=== PATIENT | male | born 1955 | race Two or more races ===

== ENCOUNTER 2018-12-18 22:45 | Emergency (ER) | payer BC ==
[~2018-12-18] VITALS: Ht 170.2 cm; Wt 92.0 kg
[~2018-12-18 22:45] MED LIST: LOSA50TA86 PO; METF500T16 PO; NAPR-514 PO; SIMV10TA3 PO
--- NOTE | 2018-12-18 22:50 | ED.ADGEN ---
Past History Past Medical History: CVA, Diabetes, Hypertension Past Medical History Rt side weakness and sensation post CVA in August 2018, Some speech dysarthria Past Surgical History: No Surgical History Smoking: Non-smoker Alcohol Use: Occasionally Drug Use: None Adult General Chief Complaint Chief Complaint ".. I in shower.. and sit... on stool.. and go put .. on shoes.. and fall.. hurt .. here .. wrist...." HPI HPI Patient is a 63 year old male who presents with above hx and complaints right wrist injury. Patient has weakness on right side from previous stroke on August 2018. Patient has post-sequela weakness from stroke and dysarthria. Patient primarily speaks Congolese. Patient does have a history of diabetes and hypertension. Patient has been compliant with his meds. No history of loss of consciousness. Patient right-hand dominant prior the stroke. Distal neurovascular intact in right hand and equal to left hand. Does have swelling and wrist area. Does have pain when he attempts to move right wrist. No upper arm tenderness or other injury reported. [facility]. FOOSH type injury. Review of Systems Review of Systems Constitutional: Denies fever or chills [] Eyes: Denies change in visual acuity, redness, or eye pain [] HENT: Denies nasal congestion or sore throat [] Respiratory: Denies cough or shortness of breath [] Cardiovascular: No additional information not addressed in HPI [] GI: Denies abdominal pain, nausea, vomiting, bloody stools or diarrhea [] : Denies dysuria or hematuria [] Musculoskeletal: Denies back pain or joint pain []Except complaints of injury in Rt. wrist. Rt. side weakness chronic since CVA Integument: Denies rash or skin lesions [] Neurologic: Denies headache, no new focal weakness or sensory changes []Rt side weakness and dysarthria since stroke Endocrine: Denies polyuria or polydipsia [] All other systems were reviewed and found to be within normal limits, except as documented in this note. Family History Family History Hypertension and diabetes Current Medications Current Medications Current Medications Medications (Trade) Dose Ordered Sig/Marcos Start Time Stop Time Status Last Admin Dose Admin Clonidine HCl (Catapres) 0.2 mg 1X ONCE 12/18/18 23:15 12/18/18 23:16 DC 12/18/18 23:17 0.2 MG Oxycodone/ Acetaminophen (Percocet 5/325) 1 tab 1X ONCE 12/18/18 23:15 12/18/18 23:16 DC 12/18/18 23:17 1 TAB See nursing for home meds Allergies Allergies Allergies Coded Allergies Type Severity Reaction Last Updated Verified No Known Drug Allergies 09/04/13 No Physical Exam Physical Exam Constitutional: Moderate acute distress, non-toxic appearance. [] HENT: Normocephalic, atraumatic, bilateral external ears normal, oropharynx moist, no oral exudates, nose normal. [] Eyes: PERRLA, EOMI, conjunctiva normal, no discharge. [] Neck: Normal range of motion, no tenderness, supple, no stridor. [] Cardiovascular:Heart rate regular rhythm, no murmur [] Lungs & Thorax: Bilateral breath sounds equal at apex auscultation [] Abdomen: Bowel sounds normal, soft, no tenderness, no masses, no pulsatile masses. [] Skin: Warm, dry, no erythema, no rash. [] Back: No tenderness, no CVA tenderness. [] Extremities: No tenderness, no cyanosis, no clubbing, ROM intact, no edema. []Except findings in right wrist. Persistent right sided weakness since CVA Neurologic: Alert and oriented X 3, some weakness on right side and decreased sensory on right side-post CVA, no new focal deficits noted. [] Psychologic: Affect anxious, judgement normal, mood normal. [] Current Patient Data Vital Signs Vital Signs Date Time Temp Pulse Resp B/P (MAP) Pulse Ox O2 Delivery O2 Flow Rate FiO2 12/19/18 00:10 18 97 12/18/18 23:50 88 162/73 (102) Room Air 12/18/18 22:45 98.2 EKG EKG [] Radiology/Procedures Radiology/Procedures [][address] [address] IMAGING REPORT Signed PATIENT: BARBARA ZAMARRIPAACCOUNT: [id number] : 1955 LOCATION: ER AGE: 63 SEX: M EXAM STATUS: DEP ER ORD. PHYSICIAN: FRANCIA HILL MD REASON: fall in shower- PAIN AROUND ENTIRE RIGHT WRIST. PROCEDURE: WRIST 3V RIGHT Examination: 3 views of the right wrist HISTORY: History of fall COMPARISON: None available FINDINGS: The alignment of the carpal bones grossly appears unremarkable. There is no obvious acute fracture identified. Mild joint space loss identified in the carpal bones likely degenerative changes. IMPRESSION: No acute osseous findings. Electronically signed by: Jacques Ponce MD (12/18/2018 11:59 PM) [place] [id number] DICTATED AND SIGNED BY: JACQUES PONCE MD DATE: 12/18/18 1666 CC: FRANCIA HILL MD; CHRISTINA VEGA MD ~ Course & Med Decision Making Course & Med Decision Making Pertinent Labs and Imaging studies reviewed. (See chart for details) Distal neurovascular intact after patient swelling. Patient keep arm elevated. Patient use ice packs as needed. Patient take Vicoprofen one tablet up to 4 times a day for marked pain. Otherwise take Tylenol and ibuprofen. Follow-up primary care. Consider repeat x-ray in 2 weeks. Explained to family and patient that sometimes scaphoid fractures do not show initially on x-ray. Patient does have marked degenerative joint changes and wrist. Return if any concerns. Follow up primary care. [] Final Impression Final Impression 1. Fall[] 2. Right wrist injury 3. History of right-sided weakness and dysarthria-CVA 2018 Dragon Disclaimer Dragon Disclaimer This electronic medical record was generated, in whole or in part, using a voice recognition dictation system. Dragon Disclaimer This chart was dictated in whole or in part using Voice Recognition software in a busy, high-work load, and often noisy Emergency Department environment. It may contain unintended and wholly unrecognized errors or omissions. FRANCIA HILL MD Dec 18, 2018 22:50
[2018-12-18] MEDS ORDERED: cloNIDine HCL 0.1 MG TABLET PO ONE (23:15)
[2018-12-18] MEDS ORDERED: oxyCODONE/APAP 5/325 1 TAB TABLET PO ONE (23:15)
[2018-12-18 23:50] VITALS: BP 162/73
[2018-12-18] MEDS ORDERED: HYDR-1179 PO (23:50)
--- NOTE | 2018-12-19 00:02 | RAD ---
Examination: 3 views of the right wrist HISTORY: History of fall COMPARISON: None available FINDINGS: The alignment of the carpal bones grossly appears unremarkable. There is no obvious acute fracture identified. Mild joint space loss identified in the carpal bones likely degenerative changes. IMPRESSION: No acute osseous findings. Electronically signed by: Jacques Ponce MD (12/18/2018 11:59 PM) [facility]
== END 2018-12-18 23:50 | disposition home or self-care (01) ==
LOC: ER 22:45
DX: S69.91XA Unspecified injury of right wrist, hand and finger(s), initial encounter (principal); E11.9 Type 2 diabetes mellitus without complications; I10 Essential (primary) hypertension; R53.1 Weakness; Z86.73 Personal history of transient ischemic attack (TIA), and cerebral infarction without residual deficits; W18.39XA Other fall on same level, initial encounter; Y93.E1 Activity, personal bathing and showering; Y92.89 Other specified places as the place of occurrence of the external cause; Y99.8 Other external cause status
CPT/HCPCS: 29125; 73110; 99284

== ENCOUNTER 2021-03-07 07:17 | Emergency (ER) | payer BC, MEDICARE ==
[~2021-03-07] VITALS: Ht 160 cm; Wt 230.0 kg
[~2021-03-07 07:17] MED LIST changes: +HYDR-1179 PO; +SIMV10TA15 PO; -SIMV10TA3 PO
[2021-03-07 07:18] VITALS: BP 127/64
--- NOTE | 2021-03-07 07:46 | PHYS DOC ---
Past History Past Medical History: CVA, Diabetes, Hypertension Past Surgical History: No Surgical History Smoking: Non-smoker Alcohol Use: Occasionally Drug Use: None General Adult EDM: Chief Complaint: SOB, COVID+ HPI: HPI: 65-year-old male presents via EMS with shortness of breath. The patient was diagnosed Covid positive for the last 1 week. Belarusian is his second language. He states that he feels like he cannot take a deep breath and it is hard to take his prescribed inhaler. He is already been prescribed dexamethasone and breathing treatments. He has no other specific complaints at this time. Review of Systems: Review of Systems: Constitutional: Denies fever or chills Eyes: Denies change in visual acuity HENT: Denies nasal congestion or sore throat Respiratory: shortness of breath Cardiovascular: Denies chest pain or edema GI: Denies abdominal pain, nausea, vomiting, bloody stools or diarrhea : Denies dysuria Musculoskeletal: Denies back pain or joint pain Integument: Denies rash Neurologic: Denies headache, focal weakness or sensory changes Endocrine: Denies polyuria or polydipsia Lymphatic: Denies swollen glands Psychiatric: Denies depression or anxiety Allergies: Allergies: Allergies Coded Allergies Type Severity Reaction Last Updated Verified No Known Drug Allergies 09/04/13 No Physical Exam: PE: Constitutional: Well developed, well nourished, no acute distress, non-toxic appearance. [] HENT: Normocephalic, atraumatic, bilateral external ears normal, oropharynx moist, no oral exudates, nose normal. [] Eyes: PERRLA, EOMI, conjunctiva normal, no discharge. [] Neck: Normal range of motion, no tenderness, supple, no stridor. [] Cardiovascular: Heart rate regular rhythm, no murmur [] Lungs & Thorax: Bilateral breath sounds clear to auscultation [] Abdomen: Bowel sounds normal, soft, no tenderness, no masses, no pulsatile masses. [] Skin: Warm, dry, no erythema, no rash. [] Back: No tenderness, no CVA tenderness. [] Extremities: No tenderness, no cyanosis, no clubbing, ROM intact, no edema. [] Neurologic: Alert and oriented X 3, normal motor function, normal sensory function, no focal deficits noted. [] Psychologic: Affect normal, judgement normal, mood normal. [] Current Patient Data: Labs: Laboratory Tests Test 03/07/21 07:33 Glucose (Fingerstick) 180 mg/dL (70-99) H EKG: EKG: [] Radiology/Procedures: Radiology/Procedures: [] Impressions: XR CHEST 1V INDICATION: COVID, SHORT OF AIR COMPARISON STUDY: 10/31/2011. FINDINGS: Lungs: Normal lung volume. Patchy bilateral peripheral predominantly opacities. Pleura: No pleural effusion or pneumothorax. Heart and Mediastinum: The cardiomediastinal silhouette is normal. At herosclerosis of the thoracic aorta. IMPRESSION: Patchy bilateral peripheral predominantly opacities, consistent with patient's history of infection. Electronically signed by: Shana Montana MD (03/07/2021 8:19 AM) [id number] DICTATED AND SIGNED BY: SHANA MONTANA MD DATE: 03/07/21817 CC: MEAGAN RODRIGUEZ DO; CHRISTINA VEGA MD ~MTH0 0 Heart Score: C/O Chest Pain: N/A Risk Factors: Risk Factors: DM, Current or recent (<one month) smoker, HTN, HLP, family history of CAD, obesity. Risk Scores: Score 0 - 3: 2.5% MACE over next 6 weeks - Discharge Home Score 4 - 6: 20.3% MACE over next 6 weeks - Admit for Clinical Observation Score 7 - 10: 72.7% MACE over next 6 weeks - Early Invasive Strategies Course & Med Decision Making: Course & Med Decision Making Pertinent Labs and Imaging studies reviewed. (See chart for details) EKG is unremarkable. Troponin is negative. The patient's labs are unremarkable. His blood sugar is 183. He has an O2 saturation of 94 on room air. His chest x-ray does show findings consistent with bilateral COVID-19. He is already on appropriate treatment. He does not meet admission criteria. He is stable for discharge at this time. [] Dragon Disclaimer: Dragon Disclaimer: This electronic medical record was generated, in whole or in part, using a voice recognition dictation system. Departure Departure: Impression: Primary Impression: COVID-19 Disposition: HOME / SELF CARE / HOMELESS Condition: STABLE Referrals: CHRISTINA VEGA MD (PCP) Additional Instructions: Definicin Se le realiz la prueba de deteccin del COVID-19 o se le diagnostic dicha enfermedad. Es cuauhtemoc infeccin ocasionada por un nuevo tipo de coronavirus. En la mayora de los casos, el COVID-19 provoca sntomas similares a los del resfriado. En algunas personas, puede ocasionar sntomas ms graves, matthew problemas respiratorios. No existe un tratamiento para el virus COVID-19. El cuerpo elimina la infeccin con el tiempo. El cuidado personal ayuda a aliviar el malestar. Pasos que debe seguir 1. Cuidados personales Descanse cuando sea necesario. Los hbitos saludables pueden ayudarlo a sentirse mejor. Algunas medidas para lograr cambios incluyen lo siguiente: - Elija alimentos saludables, matthew frutas y verduras. Emilee abundante cantidad de agua fe todo el da. - Duerma anne marie por la noche. - Si fuma, intente no hacerlo. [place] ayudar a mejorar la respiracin. - Evite el alcohol. 2. Mantenga sanos a los dems El virus puede contagiarse a otras personas. Cada vez que estornuda o tose, se liberan gotitas. Las gotitas pueden entrar en la boca, la nariz o los ojos de las personas que se encuentran cerca de usted y ocasionar la infeccin. Para reducir las probabilidades de contagiar el virus COVID-19 a otros, tenga en cuenta lo siguiente: - Qudese en casa el tiempo que el mdico se lo indique. Es posible que deba quedarse en casa hasta que la enfermedad desaparezca. Salga nicamente para recibir atencin mdica o en marianna de urgencia. - Evite las reas pblicas, los eventos o el transporte pblico. No reanude las actividades laborales o escolares hasta que el mdico lo autorice. - Llame previamente si necesita asistir a un centro mdico. Avise que es posible que haya contrado COVID-19. [place] ayudar a que le indiquen adonde debe dirigirse. Vicente pueden pedirle que use cuauhtemoc mscara facial cuando vaya al consultorio. Si llama a los servicios de asistencia mdica de urgencias, avseles que es posible que haya contrado COVID-19. Mientras est en casa: - Evite el contacto directo con otras personas. Mantngase a cuauhtemoc distancia aproximada de 2 metros. Si es posible, pasen la mayor parte del tiempo en bowman separadas. - Use cuauhtemoc mscara facial si estar en contacto directo con otras personas, por ejemplo, si compartir cuauhtemoc habitacin o un vehculo. - Pida a alguien que limpie las superficies comunes de la casa. Limpie picaportes, mesadas y lavamanos con limpiadores domsticos todos los portillo. - Al toser o estornudar, cbrase con un pauelo de papel. Despus de usarlo, deschelo de inmediato. Si no tiene un pauelo de papel, tosa o estornude en el pliegue del codo. - Lvese las sabine con frecuencia. Lvese las sabine despus de estornudar o toser. Lvese con agua y jabn fe, al menos, 20 segundos. Si no dispone de agua y jabn, use un limpiador de sabine a base de alcohol. - No cocine para otros. Evite compartir objetos personales, matthew tenedores, cucharas o cepillos de dientes. - Mientras est enfermo, evite el contacto directo con las mascotas. No hay indicios de si el virus se transmite a las mascotas. Esta es cuauhtemoc medida de seguridad que debe tenerse en cuenta hasta que se sepa ms acerca de adriano virus. El aislamiento puede ser frustrante. La interaccin social puede ayudar. Mantngase en contacto con amigos y familiares por telfono u otros medios tecnolgicos. Puede interactuar con otras personas en el hogar, jimmy mantenga cuauhtemoc distancia lopez de aproximadamente 2 metros. Seguimiento Las pruebas para confirmar la presencia del COVID-19 pueden demorar algunos portillo. Es posible que deba seguir los pasos mencionados anteriormente hasta que estn los resultados de las pruebas. Lo llamarn del consultorio mdico para saber si arora habido algn cambio en reynoso cem. Tambin le avisarn cuando pueda volver a estar cerca de otras personas. Problemas a los que debe estar atento Comunquese con el mdico si no se recupera segn lo previsto o si tiene problemas matthew los siguientes: - Dificultad para respirar - Dolor de pecho - Empeoramiento de los sntomas Si sera que tiene cuauhtemoc urgencia, llame a los servicios de asistencia mdica de urgencias de inmediato. As taken from [facility] EMAGAN RODRIGUEZ DO Mar 07, 2021 07:46
[2021-03-07 08:03] LABS: BASO % 0 % (0-3); EOS % 0 % (0-3); HEMATOCRIT 39.9 % (39.0-53.0); HEMOGLOBIN 13.5 g/dL (13.0-17.5); LYMPH # 1.3 x10^3/uL (1.0-4.8); LYMPH % 15 % (24-48); MEAN CORPUSCULAR HEMOGLOBIN 30 pg (25-35); MEAN CORPUSCULAR HGB CONC 34 g/dL (31-37); MEAN CORPUSCULAR VOLUME 88 fL (79-100); MONO # 0.4 x10^3/uL (0.0-1.1); MONO % 5 % (0-9); NEUT # 7.1 x10^3uL (1.8-7.7); NEUT % 81 % (31-73); PLATELET COUNT 323 x10^3/uL (140-400); RED BLOOD COUNT 4.52 x10^6/uL (4.30-5.70); RED CELL DISTRIBUTION WIDTH 13.3 % (11.5-14.5); WHITE BLOOD COUNT 8.9 x10^3/uL (4.0-11.0)
--- NOTE | 2021-03-07 08:07 | EKG ---
[address] [address] Test Date: 2021-03-07 Test Time: 07:52:53 Pat Name: BARBARA ZAMARRIPA Department: Room: Gender: M [employer] Operator: ISHAN : 1955 Requested By: MEAGAN RODRIGUEZ Order Number: [id number] Reading MD: Measurements Intervals [place] Rate: 72 P: 31 NM: 178 QRS: 56 QRSD: 94 T: 9 QT: 414 QTc: 455 Interpretive Statements SINUS RHYTHM ATRIAL PREMATURE COMPLEX(ES) OTHERWISE NORMAL ECG RI6.02 No previous ECG available for comparison
[2021-03-07 08:12] LABS: CALCIUM 8.8 mg/dL (8.5-10.1); GFR 75.2; POTASSIUM 3.8 mmol/L (3.5-5.1)
--- NOTE | 2021-03-07 08:21 | RAD ---
XR CHEST 1V INDICATION: COVID, SHORT OF AIR COMPARISON STUDY: 10/31/2011. FINDINGS: Lungs: Normal lung volume. Patchy bilateral peripheral predominantly opacities. Pleura: No pleural effusion or pneumothorax. Heart and Mediastinum: The cardiomediastinal silhouette is normal. Atherosclerosis of the thoracic ao rta. IMPRESSION: Patchy bilateral peripheral predominantly opacities, consistent with patient's history of infection. Electronically signed by: John Montana MD (03/07/2021 8:19 AM) [id number]
[2021-03-07 08:27] LABS: ALBUMIN 3.1 g/dL (3.4-5.0); ALBUMIN/GLOBULIN RATIO 0.8 (1.0-1.7); TOTAL BILIRUBIN 0.5 mg/dL (0.2-1.0); TOTAL PROTEIN 7.1 g/dL (6.4-8.2)
== END 2021-03-07 10:00 | disposition home or self-care (01) ==
LOC: ER 07:17
DX: U07.1 COVID-19 (principal)
CPT/HCPCS: 36415; 71045; 80053; 82947; 83605; 84484; 85025; 87040; 93005; 99285-25

== ENCOUNTER 2021-06-17 21:13 | Emergency (ER) | payer MEDICARE, MEDICAID ==
[~2021-06-17] VITALS: Ht 172.7 cm; Wt 97.8 kg
--- NOTE | 2021-06-17 22:10 | PHYS DOC ---
Past History Past Medical History: CVA, Diabetes, Hypertension Additional Past Medical Histor: Covid + 4 months ago Past Surgical History: No Surgical History Smoking: Non-smoker Alcohol Use: Rarely Drug Use: None General Adult EDM: Chief Complaint: COUGH HPI: HPI: ".. I have cough..I maybe have fever..." Patient is a 66 year old male who presents with hx cough and exposure to influenza. By 3 family members. Pt. hx diabetes and htn. Pt. follows at [facility] clinic. Pt. exposed to Grandson Julio, and son Darwin who all tested + for Influ. A. Patient denies any travel. Patient denies any immunosuppression. Patient unsure if he got flu vaccination this last fall. Did not get COVID vaccination. Did get COVID infection 4 months ago Review of Systems: Review of Systems: Constitutional: Complains of fever Eyes: Denies change in visual acuity HENT: Complains of nasal congestion. Denies sore throat Respiratory: Complains of cough. Denies shortness of breath Cardiovascular: Denies chest pain or edema GI: Denies abdominal pain, nausea, vomiting, bloody stools or diarrhea : Denies dysuria Musculoskeletal: Denies back pain or joint pain Integument: Denies rash Neurologic: Denies headache, focal weakness or sensory changes Endocrine: Denies polyuria or polydipsia Lymphatic: Denies swollen glands Psychiatric: Denies depression or anxiety Family History: Family History: 3 family members have influenza A Current Medications: Current Meds: See nursing for home meds Allergies: Allergies: Allergies Coded Allergies Type Severity Reaction Last Updated Verified No Known Drug Allergies 09/04/13 No Physical Exam: PE: Constitutional: no acute distress, non-toxic appearance. [] HENT: Normocephalic, atraumatic, bilateral external ears normal, oropharynx moist, nasal drainage, no oral exudates, nose slightly swollen turbinates and clear rhinorrhea Eyes: PERRLA, EOMI, conjunctiva normal, no discharge. [] Neck: Normal range of motion, no tenderness, supple, no stridor. [] Cardiovascular:Heart rate regular rhythm, no murmur [] Lungs & Thorax: Bilateral breath sounds equal apex with few scattered wheezes on auscultation [] Abdomen: Bowel sounds normal, soft, no tenderness, no masses, no pulsatile masses. [] Skin: Warm, dry, no erythema, no rash. [] Back: No tenderness, no CVA tenderness. [] Extremities: No tenderness, no cyanosis, no clubbing, ROM intact, trace ankle edema. [] Neurologic: Alert and oriented X 3, normal motor function, normal sensory funct ion, no focal deficits noted. [] Psychologic: Affect normal, judgement normal, mood normal. [] Current Patient Data: Vital Signs: Vital Signs Date Time Temp Pulse Resp B/P (MAP) Pulse Ox O2 Delivery O2 Flow Rate FiO2 06/17/21 21:47 97.8 98 18 150/100 (117) 98 Room Air EKG: EKG: [] Radiology/Procedures: Radiology/Procedures: [] Heart Score: C/O Chest Pain: N/A Risk Factors: Risk Factors: DM, Current or recent (<one month) smoker, HTN, HLP, family history of CAD, obesity. Risk Scores: Score 0 - 3: 2.5% MACE over next 6 weeks - Discharge Home Score 4 - 6: 20.3% MACE over next 6 weeks - Admit for Clinical Observation Score 7 - 10: 72.7% MACE over next 6 weeks - Early Invasive Strategies Course & Med Decision Making: Course & Med Decision Making Pertinent Labs and Imaging studies reviewed. (See chart for details) Patient take Tylenol and ibuprofen for any fever or discomfort. Push fluids. Isolate. Take Tamiflu 75 mg daily for 10 days. Currently has negative influenza a and B testing. Follow-up primary care. UseMDI two puffs 4 times a day. Impression: 1. Upper airway infection-viral 2. History of Covid infection 4 months ago 3. History of exposure to influenza A by 3 family members 4. History of diabetes 5. History of hypertension [] Dragon Disclaimer: Dragon Disclaimer: This electronic medical record was generated, in whole or in part, using a voice recognition dictation system. Departure Departure: Referrals: PCP,UNKNOWN (PCP) Scripts Oseltamivir Phosphate (TAMIFLU) 75 Mg Capsule 75 MG PO DAILY for exposure to Influ A for 10 Days, #10 CAP Prov: FRANCIA HILL MD 06/17/21 [place] Disclaimer This chart was dictated in whole or in part using Voice Recognition software in a busy, high-work load, and often noisy Emergency Department environment. It may contain unintended and wholly unrecognized errors or omissions. FRANCIA HILL MD Jun 17, 2021 22:10
[2021-06-17] MEDS ORDERED: ALBUTEROL SULFATE 8GM INHALER. INH ONE (22:30)
[2021-06-17 22:47] LABS: INFLUENZA A PATIENT NEGATIVE (NEGATIVE); INFLUENZA B PATIENT NEGATIVE (NEGATIVE)
[2021-06-17] MEDS ORDERED: OSEL75CA PO (22:59)
[2021-06-17] MEDS ORDERED: OSELTAMIVIR 75 MG CAPSULE PO ONE (23:00)
[2021-06-17 23:30] VITALS: BP 154/92
== END 2021-06-17 23:35 | disposition home or self-care (01) ==
LOC: ER 21:13
DX: J06.9 Acute upper respiratory infection, unspecified (principal); E11.9 Type 2 diabetes mellitus without complications; I10 Essential (primary) hypertension; Z20.822 Contact with and (suspected) exposure to COVID-19; Z86.73 Personal history of transient ischemic attack (TIA), and cerebral infarction without residual deficits; Z86.16 Personal history of COVID-19
CPT/HCPCS: 87428; 94640; 99283; 94664